=== PATIENT | female | born 1975 ===

== ENCOUNTER 2018-11-17 12:39 | Inpatient (IN) ==
[2018-11-17] MEDS ORDERED: ONDANSETRON 4 MG/2 ML VIAL IV STA (14:44)
[2018-11-17 15:03] LABS: Basophils # 0.1 10*3/uL (0.0-0.2); Basophils % 0.7 % (0.0-0.8); Eosinophils # 0.2 10*3/uL (0.0-0.87); Eosinophils % 2.4 % (0.00-10.9); Hematocrit 46.8 VOL% (35.7-47.0); Hemoglobin 16.4 GM/DL (12.0-16.0); Immature Granulocytes % 0.3 %; Immature Granulocytes Absolute 0.03 #; Lymphocytes # 1.8 10*3/uL (1.4-4.0); Lymphocytes % 20.2 % (21.3-54.2); Mean Corpuscular Volume 95.9 FL (87-102); Mean Platelet Volume 13.7 FL (9.6-12.0); Monocytes % 6.6 % (1.7-12.7); Neutrophils % 69.8 % (38.7-73.9); Platelet Count 136 T/CUMM (130-400); Red Blood Count 4.88 MC/CUMM (3.8-5.5); Red Cell Distribution Width 12.4 % (9.3-17.3); White Blood Count 8.9 T/CUMM (4-12)
[2018-11-17] MEDS ORDERED: ALBUTEROL/IPRATROPIUM 3 ML NEB RESP TX PRN (15:15)
[2018-11-17] MEDS ORDERED: PROMETHAZINE 25 MG/1 ML VIAL IM PRN (15:15)
[2018-11-17] MEDS ORDERED: ACETAMINOPHEN 325 MG TABLET PO PRN (15:15)
[2018-11-17] MEDS ORDERED: ONDANSETRON 4 MG/2 ML VIAL IV PRN ×2 (15:15→15:33)
[2018-11-17] MEDS ORDERED: DEXTROSE 50% 25 GM/50 ML VIAL IV PRN (15:16)
[2018-11-17] MEDS ORDERED: GLUCAGON 1 MG VIAL IM PRN (15:16)
[2018-11-17 15:21] LABS: Albumin 3.7 G/DL (3.4-5.0); Calcium 9.3 MG/DL (8.5-10.1); Osmolality,Calculated 272.8 MOS/KG (273-304); Total Protein 8.6 G/DL (6.4-8.3)
[2018-11-17] MEDS ORDERED: DEXTROSE 50% 25 GM/50 ML SYRINGE IV ONE (15:24)
[2018-11-17] MEDS ORDERED: PROMETHAZINE INJ 25 MG in SODIUM CHLORIDE 0.9% 50 ML IV PRN (15:33)
[2018-11-17] MEDS ORDERED: HYDROmorphone 2 MG/1 ML VIAL IV PRN (15:33)
[2018-11-17] MEDS ORDERED: LORazepam 2 MG/1 ML VIAL IV PRN (15:40)
[2018-11-17] MEDS ORDERED: LIDOCAINE 1%/EPI INJ 20 ML VIAL ONE (15:48)
[2018-11-17] MEDS ORDERED: BUPIVACAINE MPF 0.25% /EPI 30 ML VIAL ONE (15:48)
[2018-11-17 15:49] LABS: Risk Ratio 9.09; Thyroid Stimulating Hormone 2.53 uIU/ml (0.358-3.74)
[2018-11-17] MEDS ORDERED: INSULIN LISPRO 100 UNIT/ML SUBCUT STA (16:01)
[2018-11-17] MEDS ORDERED: SEVOFLURANE 1 UNIT/15 MINUTE INH ONE (16:54)
[2018-11-17] MEDS ORDERED: fentaNYL 100 MCG/2 ML VIAL ONE (16:54)
[2018-11-17] MEDS ORDERED: LACTATED RINGERS 1,000 ML IV ONE (16:54)
[2018-11-17] MEDS ORDERED: MIDAZOLAM 2 MG/2 ML VIAL ONE (16:54)
[2018-11-17] MEDS ORDERED: PROPOFOL 200 MG/20 ML VIAL IV ONE (16:54)
[2018-11-17] MEDS ORDERED: ONDANSETRON 4 MG/2 ML VIAL ONE (16:55)
[2018-11-17] MEDS ORDERED: MEPERIDINE 25 MG/1 ML VIAL ONE ×2 (16:55)
[2018-11-17] MEDS: MEPERIDINE 25 MG/1 ML VIAL IV PRN ×2 (16:55→17:05)
[2018-11-17 17:14] LABS: Hepatitis B Core IgM Quant 0.27 Index; Hepatitis B Surface Ag Quant < 0.10 Index; Hepatitis B Surface Ag Result Negative (Negative); Hepatitis C Virus Ab Quant 0.12 Index; Hepatitis C Virus Ab Result Negative (Negative)
[2018-11-17] MEDS: PIPERACILLIN/TAZOBACTAM 3,375 MG in SODIUM CHLORIDE 0.9% 100 ML IV SCH ×2 (18:04→23:57)
[2018-11-17] MEDS: LACTATED RINGERS 1,000 ML IV SCH (18:04)
[2018-11-17] MEDS: INSULIN LISPRO 100 UNIT/ML SUBCUT SCH ×2 (18:32→22:33)
[2018-11-17] MEDS: ALBUTEROL/IPRATROPIUM 3 ML NEB RESP TX SCH (19:31)
[2018-11-17] MEDS: HYDROmorphone 2 MG/1 ML VIAL IV PRN (20:36)
[2018-11-17] MEDS ORDERED: INSULIN GLARGINE 100 UNIT/ML SUBCUT SCH (21:00)
[2018-11-17] MEDS: NICOTINE 21 MG/24 HR PATCH TRANSDERM SCH (22:34)
[2018-11-18] MEDS: QUEtiapine 100 MG TABLET PO SCH ×2 (00:21→09:03)
[2018-11-18] MEDS: ALBUTEROL/IPRATROPIUM 3 ML NEB RESP TX SCH ×2 (00:30→07:17)
[2018-11-18] MEDS: HYDROmorphone 2 MG/1 ML VIAL IV PRN ×2 (01:34→09:26)
[2018-11-18 05:05] LABS: Basophils % 0.5 % (0.0-0.8); Eosinophils # 0.3 10*3/uL (0.0-0.87); Eosinophils % 3.5 % (0.00-10.9); Hemoglobin 13.9 GM/DL (12.0-16.0); Immature Granulocytes % 0.5 %; Immature Granulocytes Absolute 0.04 #; Lymphocytes # 2.1 10*3/uL (1.4-4.0); Lymphocytes % 27.6 % (21.3-54.2); Mean Corpuscular HGB Conc 33.9 GM/DL (32-36); Mean Corpuscular Volume 98.8 FL (87-102); Mean Platelet Volume 14.5 FL (9.6-12.0); Neutrophils % 60.9 % (38.7-73.9); Platelet Count 117 T/CUMM (130-400); Red Blood Count 4.15 MC/CUMM (3.8-5.5); Red Cell Distribution Width 12.5 % (9.3-17.3); White Blood Count 7.4 T/CUMM (4-12)
[2018-11-18 05:33] LABS: Calcium 8.8 MG/DL (8.5-10.1); Osmolality,Calculated 275.4 MOS/KG (273-304)
[2018-11-18] MEDS: LACTATED RINGERS 1,000 ML IV SCH (05:46)
[2018-11-18] MEDS ORDERED: POTASSIUM CHLORIDE 20 MEQ TABLET PO ONE (07:25)
[2018-11-18] MEDS ORDERED: INSULIN REGULAR 100 UNIT/ML SUBCUT SCH (07:30)
[2018-11-18 07:46] LABS: Albumin 3.1 G/DL (3.4-5.0); Bilirubin,Direct 0.33 MG/DL (0.0-0.20); Bilirubin,Indirect 0.5 MG/DL (0.0-1.0); Bilirubin,Total 0.8 MG/DL (0.2-1.0); Total Protein 7.2 G/DL (6.4-8.3)
[2018-11-18] MEDS ORDERED: PANTOPRAZOLE 40 MG TABLET PO SCH (09:00)
[2018-11-18] MEDS: INSULIN LISPRO 100 UNIT/ML SUBCUT SCH (09:00)
[2018-11-18] MEDS ORDERED: INSULIN GLARGINE 100 UNIT/ML SUBCUT SCH (09:00)
[2018-11-18] MEDS ORDERED: BISACODYL 5 MG TABLET PO SCH (09:00)
[2018-11-18] MEDS: NICOTINE 21 MG/24 HR PATCH TRANSDERM SCH (09:01)
[2018-11-18] MEDS: PIPERACILLIN/TAZOBACTAM 3,375 MG in SODIUM CHLORIDE 0.9% 100 ML IV SCH (09:03)
[2018-11-18] MEDS ORDERED: QUEtiapine 100 MG TABLET PO ONE (09:30)
[2018-11-18 11:34] VITALS: BP 107/57
== END 2018-11-18 12:53 | disposition home or self-care (01) | DRG 951 ==
LOC: N.ED 12:39 → N.EDINP 15:15 → N.3E 17:20
PROVIDERS: ADMIT Surgery; ATTEND Surgery

== ENCOUNTER 2021-06-18 11:59 | Inpatient (IN) ==
[2021-06-18] MEDS ORDERED: SODIUM CHLORIDE 0.9% 1,000 ML IV STA (12:30)
[2021-06-18] MEDS ORDERED: ONDANSETRON 4 MG/2 ML VIAL IV STA (12:30)
[2021-06-18] MEDS ORDERED: ONDANSETRON 4 MG/2 ML VIAL ONE (12:30)
[2021-06-18] MEDS ORDERED: PIPERACILLIN/TAZOBACTAM 3,375 MG in SODIUM CHLORIDE 0.9% 100 ML IV STA (12:30)
[2021-06-18] MEDS ORDERED: HYDROmorphone 2 MG/1 ML VIAL IV STA ×2 (12:30→14:42)
[2021-06-18] MEDS ORDERED: HYDROmorphone 2 MG/1 ML VIAL ONE (12:30)
[2021-06-18 12:59] LABS: Basophils # 0.1 10*3/uL (0.0-0.2); Basophils % 0.4 % (0.0-0.8); Eosinophils # 0.1 10*3/uL (0.0-0.87); Eosinophils % 0.7 % (0.00-10.9); Hematocrit 43.9 VOL% (35.7-47.0); Hemoglobin 15.8 GM/DL (12.0-16.0); Immature Granulocytes % 1.7 %; Immature Granulocytes Absolute 0.29 #; Lymphocytes # 2.1 10*3/uL (1.4-4.0); Lymphocytes % 12.8 % (21.3-54.2); Mean Corpuscular Volume 90.1 FL (87-102); Mean Platelet Volume 11.1 FL (9.6-12.0); Neutrophils % 81.4 % (38.7-73.9); Platelet Count 659 T/CUMM (130-400); Red Blood Count 4.87 MC/CUMM (3.8-5.5); Red Cell Distribution Width 12.5 % (9.3-17.3); White Blood Count 16.6 T/CUMM (4-12)
[2021-06-18 13:16] LABS: Alanine Aminotransferase 31 U/L (13-56); Albumin 1.9 G/DL (3.4-5.0); Alkaline Phosphatase 195 U/L (45-117); Aspartate Amino Transferase 52 U/L (0-37); Blood Urea Nitrogen 8 MG/DL (7-18); Calcium 9.4 MG/DL (8.5-10.1); Carbon Dioxide 28 MMOL/L (21-32); Estimated Glom Filtration Rate 73 ML/MIN; Glucose 439 MG/DL (74-106); Osmolality,Calculated 271.2 MOS/KG (273-304); Potassium 3.5 MMOL/L (3.5-5.1); Sodium 127 MMOL/L (136-145); Total Protein 9.3 G/DL (6.4-8.2)
[2021-06-18] MEDS ORDERED: INSULIN LISPRO 100 UNIT/ML SUBCUT STA (13:29)
[2021-06-18] MEDS ORDERED: ONDANSETRON 4 MG/2 ML VIAL IV PRN (14:21)
[2021-06-18] MEDS ORDERED: BISACODYL 5 MG TABLET PO PRN (14:28)
[2021-06-18] MEDS ORDERED: GLUCAGON 1 MG VIAL IM PRN ×2 (14:28)
[2021-06-18] MEDS ORDERED: NICOTINE 21 MG/24 HR PATCH TRANSDERM PRN (14:28)
[2021-06-18] MEDS ORDERED: DEXTROSE 50% 25 GM/50 ML VIAL IV PRN (14:28)
[2021-06-18] MEDS ORDERED: ACETAMINOPHEN 325 MG TABLET PO PRN (14:28)
[2021-06-18] MEDS ORDERED: LACTATED RINGERS 1,000 ML IV SCH (14:30)
[2021-06-18] MEDS ORDERED: LORazepam 2 MG/1 ML VIAL IV PRN (14:33)
[2021-06-18] MEDS ORDERED: HydrOXYzine PAMOATE 50 MG CAPSULE PO PRN (14:33)
[2021-06-18] MEDS ORDERED: DEXTROSE 10% 25 GM/250 ML BAG IV PRN (14:49)
[2021-06-18] MEDS ORDERED: THIAMINE INJ 100 MG, FOLIC ACID INJ 1 MG, MULTIVITAMIN INJ 10 ML in SODIUM CHLORIDE 0.9... IV SCH (15:00)
[2021-06-18] MEDS ORDERED: THIAMINE INJ 100 MG, FOLIC ACID INJ 1 MG, MAGNESIUM SULF INJ 2 GM, MULTIVITAMIN INJ 10 ... IV SCH (15:00)
[2021-06-18] MEDS ORDERED: PIPERACILLIN/TAZOBACTAM 3,375 MG in SODIUM CHLORIDE 0.9% 100 ML IV SCH (15:00)
[2021-06-18 15:09] LABS: Risk Ratio 9.61
[2021-06-18] MEDS: PANTOPRAZOLE 40 MG VIAL IV SCH (15:30)
[2021-06-18] MEDS: ENOXAPARIN 40 MG/0.4 ML SYRINGE SUBCUT SCH (15:35)
[2021-06-18] MEDS ORDERED: ENOXAPARIN 40 MG/0.4 ML SYRINGE SUBCUT SCH (16:00)
[2021-06-18] MEDS: 1: THIAMINE INJ 100 MG, FOLIC ACID INJ 1 MG, MAGNESIUM SULF INJ 2 GM, MULTIVITAMIN INJ 1 IV SCH (17:00)
[2021-06-18] MEDS: HYDROmorphone 2 MG/1 ML VIAL IV PRN ×2 (17:05→22:07)
[2021-06-18 17:39] LABS: Bilirubin,Urine Negative (Negative); Blood, Urine Small mg/dL (Negative); Glucose,Urine (UA) >=500 mg/dL (Negative); Ketones,Urine Negative (Negative); Mucus,Urine Occasional /LPF (Occasional); Nitrite,Urine Positive (Negative); Protein,Urine 30 MG/DL; RBC,Urine 10 /HPF (0-4); Squamous Epithelial Cell,Urine Occasional /HPF (0-10); Urine Appearance CLEAR (Clear); Urine Color Yellow (Yellow); Urine Specific Gravity 1.055 (1.001-1.035); Urine Urobilinogen < 2.0 EU/DL (<2.0)
[2021-06-18] MEDS ORDERED: INSULIN LISPRO 100 UNIT/ML SUBCUT SCH (18:00)
[2021-06-18 18:20] LABS: INR 1.1; PT Patient Result 11.8 SECS (10.5-12.0); Partial Thromboplastin Time 27.9 SECS (23.8-32.1)
[2021-06-18] MEDS: PREGABALIN 50 MG CAPSULE PO SCH (20:16)
[2021-06-18] MEDS: QUEtiapine 100 MG TABLET PO SCH (20:16)
[2021-06-18 20:17] LABS: Barbiturates Screen,Urine Negative (Negative); Benzodiazepines Screen,Urine Negative (Negative); Cannabinoid Screen,Urine Negative (Negative); Opiate Screen,Urine Positive (Negative); Phencyclidine Screen,Urine Negative (Negative)
[2021-06-18] MEDS: PIPERACILLIN/TAZOBACTAM 3,375 MG in SODIUM CHLORIDE 0.9% 100 ML IV SCH (22:09)
[2021-06-18] MEDS: SODIUM CHLORIDE 0.9% 1,000 ML IV SCH (22:46)
[2021-06-18] MEDS: INSULIN LISPRO 100 UNIT/ML SUBCUT SCH ×2 (22:46→23:06)
[2021-06-19] MEDS: SODIUM CHLORIDE 0.9% 1,000 ML IV SCH (01:37)
[2021-06-19] MEDS: HYDROmorphone 2 MG/1 ML VIAL IV PRN ×5 (02:42→20:26)
[2021-06-19] MEDS: INSULIN LISPRO 100 UNIT/ML SUBCUT SCH ×6 (02:54→21:52)
[2021-06-19] MEDS: 1: THIAMINE INJ 100 MG, FOLIC ACID INJ 1 MG, MAGNESIUM SULF INJ 2 GM, MULTIVITAMIN INJ 1 IV SCH (02:55)
[2021-06-19 05:47] LABS: Basophils % 0.3 % (0.0-0.8); Eosinophils # 0.2 10*3/uL (0.0-0.87); Eosinophils % 1.5 % (0.00-10.9); Hematocrit 37.9 VOL% (35.7-47.0); Immature Granulocytes % 2.1 %; Immature Granulocytes Absolute 0.32 #; Lymphocytes # 2.6 10*3/uL (1.4-4.0); Lymphocytes % 16.9 % (21.3-54.2); Mean Corpuscular HGB Conc 34.3 GM/DL (32-36); Monocytes % 4.1 % (1.7-12.7); Neutrophils % 75.1 % (38.7-73.9); Platelet Count 542 T/CUMM (130-400); Red Blood Count 4.03 MC/CUMM (3.8-5.5); Red Cell Distribution Width 12.4 % (9.3-17.3); White Blood Count 15.1 T/CUMM (4-12)
[2021-06-19 05:53] LABS: Albumin 1.9 G/DL (3.4-5.0); Bilirubin,Total 0.5 MG/DL (0.20-1.00); Calcium 8.5 MG/DL (8.5-10.1); Osmolality,Calculated 260.1 MOS/KG (273-304); Potassium 3.1 MMOL/L (3.5-5.1)
[2021-06-19] MEDS: PIPERACILLIN/TAZOBACTAM 3,375 MG in SODIUM CHLORIDE 0.9% 100 ML IV SCH (06:00)
[2021-06-19 06:02] LABS: Folate > 24.00 NG/ML (5.38-24.0); Vitamin B12 602 PG/ML (211-911)
[2021-06-19] MEDS: ONDANSETRON 4 MG/2 ML VIAL IV PRN ×3 (07:59→18:14)
[2021-06-19] MEDS ORDERED: MEROPENEM 2,000 MG in SODIUM CHLORIDE 0.9% 100 ML IV SCH (09:30)
[2021-06-19] MEDS ORDERED: POTASSIUM CHLORIDE 20 MEQ TABLET PO ONE (09:30)
[2021-06-19] MEDS: PANTOPRAZOLE 40 MG VIAL IV SCH ×2 (11:21→20:25)
[2021-06-19] MEDS: QUEtiapine 100 MG TABLET PO SCH ×2 (11:21→20:25)
[2021-06-19] MEDS: MEROPENEM 500 MG in SODIUM CHLORIDE 0.9% 100 ML IV SCH ×2 (12:47→18:13)
[2021-06-19] MEDS: SODIUM CHLOR 0.9% KCL 20 MEQ 20 MEQ/1,000 ML BAG IV SCH ×3 (12:47→23:24)
[2021-06-19] MEDS: MULTIVITAMIN (CENTRUM) TABLET PO SCH (12:50)
[2021-06-19] MEDS: FOLIC ACID 1 MG TABLET PO SCH (12:50)
[2021-06-19] MEDS: THIAMINE 100 MG TABLET PO SCH (12:50)
[2021-06-19] MEDS: ENOXAPARIN 40 MG/0.4 ML SYRINGE SUBCUT SCH (16:03)
[2021-06-19] MEDS: chlordiazePOXIDE 10 MG CAPSULE PO SCH ×2 (16:03→20:24)
[2021-06-19] MEDS: PREGABALIN 50 MG CAPSULE PO SCH (20:24)
[2021-06-20] MEDS: MEROPENEM 500 MG in SODIUM CHLORIDE 0.9% 100 ML IV SCH ×2 (00:31→05:56)
[2021-06-20] MEDS: INSULIN LISPRO 100 UNIT/ML SUBCUT SCH ×6 (05:33→23:44)
[2021-06-20 05:43] LABS: Basophils # 0.1 10*3/uL (0.0-0.2); Basophils % 0.4 % (0.0-0.8); Eosinophils # 0.2 10*3/uL (0.0-0.87); Eosinophils % 1.6 % (0.00-10.9); Hematocrit 35.6 VOL% (35.7-47.0); Hemoglobin 12.3 GM/DL (12.0-16.0); Immature Granulocytes % 2.1 %; Immature Granulocytes Absolute 0.26 #; Lymphocytes # 2.7 10*3/uL (1.4-4.0); Lymphocytes % 21.9 % (21.3-54.2); Mean Corpuscular HGB Conc 34.6 GM/DL (32-36); Mean Corpuscular Volume 94.2 FL (87-102); Mean Platelet Volume 10.7 FL (9.6-12.0); Monocytes % 5.9 % (1.7-12.7); Neutrophils % 68.1 % (38.7-73.9); Platelet Count 485 T/CUMM (130-400); Red Blood Count 3.78 MC/CUMM (3.8-5.5); Red Cell Distribution Width 12.6 % (9.3-17.3); White Blood Count 12.5 T/CUMM (4-12)
[2021-06-20 05:51] LABS: Calcium 7.9 MG/DL (8.5-10.1); Osmolality,Calculated 277.5 MOS/KG (273-304); Potassium 4.1 MMOL/L (3.5-5.1)
[2021-06-20] MEDS: SODIUM CHLOR 0.9% KCL 20 MEQ 20 MEQ/1,000 ML BAG IV SCH ×3 (06:56→21:35)
[2021-06-20] MEDS: HYDROmorphone 2 MG/1 ML VIAL IV PRN ×3 (06:58→21:37)
[2021-06-20] MEDS: FOLIC ACID 1 MG TABLET PO SCH (11:05)
[2021-06-20] MEDS: MULTIVITAMIN (CENTRUM) TABLET PO SCH (11:05)
[2021-06-20] MEDS: chlordiazePOXIDE 10 MG CAPSULE PO SCH ×3 (11:06→21:38)
[2021-06-20] MEDS: PANTOPRAZOLE 40 MG VIAL IV SCH ×2 (11:06→21:44)
[2021-06-20] MEDS: THIAMINE 100 MG TABLET PO SCH (11:06)
[2021-06-20] MEDS: FENOFIBRATE 145 MG TABLET PO SCH (11:06)
[2021-06-20] MEDS: cefTRIAXone 2,000 MG in SODIUM CHLORIDE 0.9% 100 ML IV SCH (11:46)
[2021-06-20] MEDS ORDERED: ALBUTEROL/IPRATROPIUM 3 ML NEB RESP TX PRN (13:18)
[2021-06-20] MEDS: ONDANSETRON 4 MG/2 ML VIAL IV PRN (14:01)
[2021-06-20] MEDS: oxyCODONE/ACETAMINOPHEN 5-325 MG TABLET PO PRN (19:18)
[2021-06-20] MEDS: SODIUM CHLORIDE 0.9% 1,000 ML IV SCH (20:15)
[2021-06-20] MEDS: 1: THIAMINE INJ 100 MG, FOLIC ACID INJ 1 MG, MAGNESIUM SULF INJ 2 GM, MULTIVITAMIN INJ 1 IV SCH (20:16)
[2021-06-20] MEDS: QUEtiapine 100 MG TABLET PO SCH (21:38)
[2021-06-20] MEDS: PREGABALIN 50 MG CAPSULE PO SCH (21:38)
[2021-06-21] MEDS: SODIUM CHLOR 0.9% KCL 20 MEQ 20 MEQ/1,000 ML BAG IV SCH (03:14)
[2021-06-21] MEDS: INSULIN LISPRO 100 UNIT/ML SUBCUT SCH ×4 (04:12→21:56)
[2021-06-21 05:54] LABS: Calcium 8.7 MG/DL (8.5-10.1); Osmolality,Calculated 262.5 MOS/KG (273-304); Potassium 4.3 MMOL/L (3.5-5.1)
[2021-06-21 05:56] LABS: Basophils # 0.1 10*3/uL (0.0-0.2); Basophils % 0.5 % (0.0-0.8); Eosinophils # 0.2 10*3/uL (0.0-0.87); Eosinophils % 2.2 % (0.00-10.9); Hematocrit 44.1 VOL% (35.7-47.0); Hemoglobin 14.1 GM/DL (12.0-16.0); Immature Granulocytes % 2.2 %; Immature Granulocytes Absolute 0.24 #; Lymphocytes # 2.4 10*3/uL (1.4-4.0); Lymphocytes % 21.4 % (21.3-54.2); Mean Corpuscular Volume 98.4 FL (87-102); Mean Platelet Volume 12.6 FL (9.6-12.0); Monocytes % 6.4 % (1.7-12.7); Neutrophils % 67.3 % (38.7-73.9); Platelet Count 359 T/CUMM (130-400); Red Blood Count 4.48 MC/CUMM (3.8-5.5); Red Cell Distribution Width 12.7 % (9.3-17.3)
[2021-06-21 06:36] LABS: Hypochromia Slight; Microcytosis Slight
[2021-06-21] MEDS ORDERED: propofoL 200 MG/20 ML VIAL IV ONE (07:45)
[2021-06-21] MEDS ORDERED: ETOMIDATE 20 MG/10 ML VIAL IV ONE (07:45)
[2021-06-21] MEDS ORDERED: LIDOCAINE 2% 5 ML VIAL ONE (07:45)
[2021-06-21] MEDS: LACTATED RINGERS 1,000 ML IV SCH (07:49)
[2021-06-21] MEDS ORDERED: CALCIUM CHLORIDE 1,000 MG/10 ML VIAL IV ONE (07:57)
[2021-06-21] MEDS: FOLIC ACID 1 MG TABLET PO SCH (08:39)
[2021-06-21] MEDS: MULTIVITAMIN (CENTRUM) TABLET PO SCH (08:39)
[2021-06-21] MEDS: PANTOPRAZOLE 40 MG TABLET PO SCH (08:40)
[2021-06-21] MEDS: THIAMINE 100 MG TABLET PO SCH (08:40)
[2021-06-21] MEDS: FENOFIBRATE 145 MG TABLET PO SCH (08:40)
[2021-06-21] MEDS: chlordiazePOXIDE 10 MG CAPSULE PO SCH ×3 (08:40→21:58)
[2021-06-21 10:10] LABS: Hepatitis B Core IgM Quant 0.29 Index; Hepatitis B Surface Ag Quant < 0.10 Index; Hepatitis B Surface Ag Result Non-Reactive (NonReactive); Hepatitis C Virus Ab Quant 0.06 Index; Hepatitis C Virus Ab Result Non-Reactive (NonReactive)
[2021-06-21] MEDS: oxyCODONE/ACETAMINOPHEN 5-325 MG TABLET PO PRN ×2 (11:23→21:58)
[2021-06-21] MEDS: cefTRIAXone 2,000 MG in SODIUM CHLORIDE 0.9% 100 ML IV SCH (15:03)
[2021-06-21] MEDS: HYDROmorphone 2 MG/1 ML VIAL IV PRN (16:10)
[2021-06-21] MEDS: PREGABALIN 50 MG CAPSULE PO SCH (21:57)
[2021-06-21] MEDS: QUEtiapine 100 MG TABLET PO SCH (21:57)
[2021-06-22] MEDS: SODIUM CHLOR 0.9% KCL 20 MEQ 20 MEQ/1,000 ML BAG IV SCH (00:11)
[2021-06-22] MEDS: INSULIN LISPRO 100 UNIT/ML SUBCUT SCH ×5 (00:18→16:12)
[2021-06-22 05:11] LABS: Basophils # 0.1 10*3/uL (0.0-0.2); Basophils % 0.4 % (0.0-0.8); Eosinophils # 0.3 10*3/uL (0.0-0.87); Eosinophils % 2.2 % (0.00-10.9); Hematocrit 36.2 VOL% (35.7-47.0); Hemoglobin 12.3 GM/DL (12.0-16.0); Immature Granulocytes % 1.6 %; Immature Granulocytes Absolute 0.19 #; Lymphocytes # 2.6 10*3/uL (1.4-4.0); Lymphocytes % 22.4 % (21.3-54.2); Mean Corpuscular Volume 95.5 FL (87-102); Neutrophils % 66.4 % (38.7-73.9); Platelet Count 542 T/CUMM (130-400); Red Blood Count 3.79 MC/CUMM (3.8-5.5); Red Cell Distribution Width 12.6 % (9.3-17.3); White Blood Count 11.6 T/CUMM (4-12)
[2021-06-22 05:39] LABS: Calcium 8.8 MG/DL (8.5-10.1); Osmolality,Calculated 270.1 MOS/KG (273-304); Potassium 3.7 MMOL/L (3.5-5.1)
[2021-06-22] MEDS: LACTATED RINGERS 1,000 ML IV SCH (06:39)
[2021-06-22] MEDS: oxyCODONE/ACETAMINOPHEN 5-325 MG TABLET PO PRN (07:33)
[2021-06-22] MEDS: MULTIVITAMIN (CENTRUM) TABLET PO SCH (09:05)
[2021-06-22] MEDS: PANTOPRAZOLE 40 MG TABLET PO SCH (09:05)
[2021-06-22] MEDS: FENOFIBRATE 145 MG TABLET PO SCH (09:05)
[2021-06-22] MEDS: THIAMINE 100 MG TABLET PO SCH (09:05)
[2021-06-22] MEDS: FOLIC ACID 1 MG TABLET PO SCH (09:06)
[2021-06-22] MEDS: chlordiazePOXIDE 10 MG CAPSULE PO SCH (09:06)
[2021-06-22] MEDS: cefTRIAXone 2,000 MG in SODIUM CHLORIDE 0.9% 100 ML IV SCH (11:12)
[2021-06-22] MEDS ORDERED: FUROSEMIDE 40 MG/4 ML VIAL ONE (14:43)
[2021-06-22] MEDS ORDERED: busPIRone 5 MG TABLET PO SCH (15:00)
[2021-06-22 15:18] VITALS: BP 106/64
== END 2021-06-22 18:22 | disposition home or self-care (01) | DRG 282 ==
LOC: EDUNIT# → EDBD → N.ED 11:59 → SUATTDRO 14:28 → N.EDINP 14:28 → N.3E 17:20
PROVIDERS: ADMIT Internal Medicine; ATTEND Internal Medicine